=== PATIENT | male | born 1935 | race Hispanic/Latino ===

== ENCOUNTER 2017-06-07 13:41 | Emergency (ER) | payer OTHER ==
[2017-06-07 14:41] LABS: BASOPHILS % (AUTO) 1.1 % (0.0-5.0); EOSINOPHILS % (AUTO) 5.9 % (0.0-8.0); HEMATOCRIT 37.6 % (42-54); MEAN CORPUSCULAR HEMOGLOBIN 31.2 pg (27.0-33.0); MEAN CORPUSCULAR HGB CONC 35.2 g/dL (32.0-36.0); MEAN CORPUSCULAR VOLUME 88.7 fL (79-99); MONOCYTES % (AUTO) 8.2 % (3.0-13.0); NEUTROPHILS % (AUTO) 69.8 % (40.0-77.0); PLATELET COUNT (AUTO) 222 K/uL (130-400); RED BLOOD CELL COUNT(AUTO) 4.24 MIL/uL (4.50-6.20); WHITE BLOOD COUNT (AUTO) 6.2 K/uL (4.8-10.8)
[2017-06-07 14:51] LABS: CREATININE 1.4 mg/dL (0.5-1.5); POTASSIUM 3.9 mmol/L (3.5-5.1)
[2017-06-07 14:56] LABS: ALBUMIN 3.5 g/dL (3.5-5.0); BILIRUBIN,TOTAL 0.4 mg/dL (0.2-1.0); TOTAL PROTEIN, SERUM 8.2 g/dL (6.0-8.3)
[2017-06-07 15:20] LABS: APPEARANCE,URINE Clear (CLEAR); BILIRUBIN,URINE Negative (NEGATIVE); COLOR,URINE Yellow (YELLOW); GLUCOSE, URINE (UA) TRACE mg/dL (NEGATIVE); KETONES,URINE Negative (NEGATIVE); LEUKOCYTE ESTERASE ,URINE Large (NEGATIVE); NITRATE,URINE Negative (NEGATIVE); OCCULT BLOOD,URINE Small (NEGATIVE); PROTEIN,URINE POS 1+ (NEGATIVE); UROBILINOGEN,URINE 0.2 mg/dL (0.2-1.0)
[2017-06-07] MEDS ORDERED: SODIUM CHLORIDE 0.9% 500ML 500 ML IV ONE (15:21)
[2017-06-07 15:32] LABS: BACTERIA,URINE Rare /HPF (None Seen); RBC,URINE 0-1 /HPF (0-1); SQUAMOUS EPITHELIAL CELL,UR 0-2 /HPF (0-2)
== END 2017-06-07 15:42 | disposition home or self-care (01) ==
LOC: EDBD 13:41 → EDH 13:41
DX: E11.65 Type 2 diabetes mellitus with hyperglycemia (principal); I10 Essential (primary) hypertension; F41.9 Anxiety disorder, unspecified
CPT/HCPCS: 36415; 80053; 81001; 85025; 99284; J7040

== ENCOUNTER 2017-10-22 12:11 | Inpatient (IN) | payer OTHER ==
[~2017-10-22] VITALS: Ht 167.6 cm; Wt 54.5 kg
[2017-10-22 13:05] LABS: EOSINOPHILS % (AUTO) 2.5 % (0.0-8.0); HEMATOCRIT 35.8 % (42-54); LYMPHOCYTES % (AUTO) 17.8 % (21.0-51.0); MEAN CORPUSCULAR HEMOGLOBIN 30.9 pg (27.0-33.0); MEAN CORPUSCULAR HGB CONC 33.6 g/dL (32.0-36.0); MONOCYTES % (AUTO) 9.2 % (3.0-13.0); NEUTROPHILS % (AUTO) 69.5 % (40.0-77.0); PLATELET COUNT (AUTO) 212 K/uL (130-400); RED BLOOD CELL COUNT(AUTO) 3.89 MIL/uL (4.50-6.20); RED CELL DISTRIBUTION WIDTH 14.3 % (11.0-15.5); WHITE BLOOD COUNT (AUTO) 7.4 K/uL (4.8-10.8)
[2017-10-22 13:21] LABS: ALBUMIN 3.6 g/dL (3.5-5.0); BILIRUBIN,TOTAL 0.4 mg/dL (0.2-1.0); CREATININE 2.1 mg/dL (0.5-1.5); TOTAL PROTEIN, SERUM 8.9 g/dL (6.0-8.3)
[2017-10-22 13:50] LABS: POTASSIUM 6.8 mmol/L (3.5-5.1)
[2017-10-22 14:07] LABS: APPEARANCE,URINE Clear (CLEAR); BILIRUBIN,URINE Negative (NEGATIVE); COLOR,URINE Yellow (YELLOW); GLUCOSE, URINE (UA) Negative (NEGATIVE); KETONES,URINE Trace mg/dL (NEGATIVE); LEUKOCYTE ESTERASE ,URINE Small (NEGATIVE); NITRATE,URINE Negative (NEGATIVE); OCCULT BLOOD,URINE Small (NEGATIVE); PROTEIN,URINE Trace (NEGATIVE); UROBILINOGEN,URINE 0.2 mg/dL (0.2-1.0)
[2017-10-22] MEDS ORDERED: SODIUM POLYSTYRENE SULFONATE 15 GM/60 ML ML ONE ×2 (14:11→20:55)
[2017-10-22] MEDS ORDERED: SODIUM CHLORIDE 0.9% 1000ML 1,000 ML IV ONE ×2 (14:12→20:54)
[2017-10-22] MEDS ORDERED: INSULIN HUMULIN R 100 UNIT/ML 3ML ONE (14:12)
[2017-10-22] MEDS ORDERED: DEXTROSE 50%-WATER 50 ML DISP.SYRIN IV ONE (14:12)
[2017-10-22 14:14] LABS: BACTERIA,URINE Rare /HPF (None Seen); RBC,URINE 0-1 /HPF (0-1); SQUAMOUS EPITHELIAL CELL,UR Rare /HPF (0-2)
[2017-10-22] MEDS ORDERED: CEFTRIAXONE SODIUM 1 GM ONE (14:33)
[2017-10-22 21:21] VITALS: BP 140/70
[2017-10-22] MEDS ORDERED: SODIUM POLYSTYRENE SULFONATE 15 GM/60 ML ML PO NR (21:45)
[2017-10-22] MEDS: SODIUM CHLORIDE 0.9% 1000ML 1,000 ML IV SCH (21:59)
[2017-10-22 23:00] VITALS: BP 139/66
[2017-10-22] MEDS ORDERED: SODIUM POLYSTYRENE SULFONATE 15 GM/60 ML ML PO SCH (23:00)
[2017-10-23 03:00] VITALS: BP 120/63
[2017-10-23] MEDS: SODIUM CHLORIDE 0.9% 1000ML 1,000 ML IV SCH (04:35)
[2017-10-23 04:36] LABS: BASOPHILS % (AUTO) 0.4 % (0.0-5.0); EOSINOPHILS % (AUTO) 3.8 % (0.0-8.0); HEMATOCRIT 35.1 % (42-54); LYMPHOCYTES % (AUTO) 12.2 % (21.0-51.0); MEAN CORPUSCULAR HEMOGLOBIN 30.7 pg (27.0-33.0); MEAN CORPUSCULAR HGB CONC 33.4 g/dL (32.0-36.0); MONOCYTES % (AUTO) 8.8 % (3.0-13.0); NEUTROPHILS % (AUTO) 74.8 % (40.0-77.0); PLATELET COUNT (AUTO) 167 K/uL (130-400); RED BLOOD CELL COUNT(AUTO) 3.81 MIL/uL (4.50-6.20); RED CELL DISTRIBUTION WIDTH 13.9 % (11.0-15.5); WHITE BLOOD COUNT (AUTO) 8.7 K/uL (4.8-10.8)
[2017-10-23 05:04] LABS: BILIRUBIN,TOTAL 0.4 mg/dL (0.2-1.0); CREATININE 1.7 mg/dL (0.5-1.5); MAGNESIUM 1.6 mg/dL (1.80-2.40); PHOSPHORUS 4.8 mg/dL (2.5-4.9); POTASSIUM 5.6 mmol/L (3.5-5.1); URIC ACID 5.6 mg/dL (2.6-7.2)
[2017-10-23 07:00] VITALS: BP 112/60
[2017-10-23] MEDS ORDERED: ONDANSETRON HCL 4 MG/2 ML VIAL ONE (08:01)
[2017-10-23] MEDS: LEVOFLOXACIN 250 MG/D5W 50ML 50 ML IV SCH (08:13)
[2017-10-23] MEDS ORDERED: OMEP20CA10 PO (10:02)
[2017-10-23] MEDS ORDERED: ASPI-1182 PO (10:02)
[2017-10-23] MEDS ORDERED: AMLO5TAB7 PO (10:02)
[2017-10-23 11:00] VITALS: BP 97/43
[2017-10-23 13:08] LABS: ABG BASE EXCESS -7.9 mmol/L (-2.0-3.0); ABG HCO3 16.4 mmol/L (21.0-28.0); ABG OXYGEN SATURATION 97.4 % (95.0-99.0); ABG PCO2 31 mmHg (35-48)
[2017-10-23] MEDS: SODIUM BICARB 8.4% 50ML SYRING 75 MEQ in 1/2 NORMAL SALINE 1,000 ML IV SCH ×2 (15:09→20:51)
[2017-10-23 15:11] LABS: CREATININE,URINE RANDOM 19 mg/dL (30-135); SODIUM,URINE RANDOM 108 mmol/l (40-220)
[2017-10-23 16:55] VITALS: BP 107/52
[2017-10-23] MEDS ORDERED: METF-444 PO (17:37)
[2017-10-23 19:00] VITALS: BP 103/52
[2017-10-23] MEDS: SODIUM BICARBONATE 650 MG TAB PO SCH (20:51)
[2017-10-23 23:00] VITALS: BP 131/59
[2017-10-24 03:00] VITALS: BP 127/59
[2017-10-24 03:56] LABS: CREATININE 1.4 mg/dL (0.5-1.5); MAGNESIUM 1.2 mg/dL (1.80-2.40); POTASSIUM 3.5 mmol/L (3.5-5.1)
[2017-10-24 04:00] LABS: HEMOGLOBIN A1C 6.4 % (4.0-6.0)
[2017-10-24 04:01] LABS: HEMATOCRIT 31.5 % (42-54); MEAN CORPUSCULAR HEMOGLOBIN 29.7 pg (27.0-33.0); MEAN CORPUSCULAR HGB CONC 32.6 g/dL (32.0-36.0); NUCLEATED RED BLOOD CELLS 0.1 % (0.0-0.19); PLATELET COUNT (AUTO) 137 K/uL (130-400); RED BLOOD CELL COUNT(AUTO) 3.46 MIL/uL (4.50-6.20); WHITE BLOOD COUNT (AUTO) 4.5 K/uL (4.8-10.8)
[2017-10-24] MEDS: SODIUM BICARB 8.4% 50ML SYRING 75 MEQ in 1/2 NORMAL SALINE 1,000 ML IV SCH ×2 (06:49→10:31)
[2017-10-24 08:18] VITALS: BP 117/63
[2017-10-24] MEDS: LEVOFLOXACIN 250 MG/D5W 50ML 50 ML IV SCH (08:58)
[2017-10-24] MEDS: FOLIC ACID/VITAMIN B COMP W-C 1 MG CAPSULE PO SCH (08:58)
[2017-10-24] MEDS: SODIUM BICARBONATE 650 MG TAB PO SCH ×2 (08:58→20:27)
[2017-10-24 12:21] VITALS: BP 119/73
[2017-10-24 16:00] VITALS: BP 145/58
[2017-10-24 19:31] VITALS: BP 126/59
[2017-10-24] MEDS ORDERED: MAGNESIUM 2GM PREMIX 50ML 50 ML IV SCH (21:15)
[2017-10-24 23:36] VITALS: BP 125/67
[2017-10-25 03:44] VITALS: BP 131/67
[2017-10-25 06:28] LABS: CREATININE 1.4 mg/dL (0.5-1.5); POTASSIUM 3.3 mmol/L (3.5-5.1)
[2017-10-25 08:04] VITALS: BP 131/61
[2017-10-25] MEDS: LEVOFLOXACIN 250 MG/D5W 50ML 50 ML IV SCH (08:24)
[2017-10-25] MEDS: FOLIC ACID/VITAMIN B COMP W-C 1 MG CAPSULE PO SCH (08:24)
[2017-10-25] MEDS: SODIUM BICARBONATE 650 MG TAB PO SCH (08:24)
[2017-10-25 12:00] VITALS: BP 114/50
[2017-10-25 16:00] VITALS: BP 138/66
[2017-10-25] MEDS ORDERED: LEVO500T2 PO (17:28)
== END 2017-10-25 19:00 | disposition home or self-care (01) | DRG 683 ==
LOC: EDH 12:11 → EDHIP 14:42 → 2DH 19:58
PROVIDERS: ADMIT Internal Medicine; ATTEND Internal Medicine
DX: N17.9 Acute kidney failure, unspecified (principal); G71.0 Muscular dystrophy; E87.2 Acidosis; N30.00 Acute cystitis without hematuria; E87.5 Hyperkalemia; E11.22 Type 2 diabetes mellitus with diabetic chronic kidney disease; I12.9 Hypertensive chronic kidney disease with stage 1 through stage 4 chronic kidney disease, or unspecified chronic kidney disease; N18.9 Chronic kidney disease, unspecified; N28.1 Cyst of kidney, acquired; N40.0 Benign prostatic hyperplasia without lower urinary tract symptoms; R13.10 Dysphagia, unspecified; Z79.899 Other long term (current) drug therapy; Z79.82 Long term (current) use of aspirin
CPT/HCPCS: 36415; 36600; 71045; 74230; 76770; 80048; 80053; 81001; 82570; 82803; 82948; 83036; 83735; 83935; 84100; 84132; 84300; 84550; 85025; 85027; 92526; 92610; 92611; 93005; 97039; J0696; J1815; J1956; J2405; J3475; J3490; J7030; J7070